=== PATIENT | male | born 1985 | race Caucasian/White ===

== ENCOUNTER 2018-07-07 16:18 | Emergency (ER) | payer SELFPAY ==
[~2018-07-07] VITALS: Ht 172.7 cm; Wt 86.4 kg
[2018-07-07] MEDS: BACITRACIN 0.9 GM PACKET OINTMENT TP ONE (17:37)
[2018-07-07] MEDS: LIDOCAINE/PF 1% 5 ML VIAL INJ ONE (17:37)
[2018-07-07] MEDS: IBUPROFEN 600 MG TABLET PO ONE (17:37)
[2018-07-07] MEDS: PERTUSS(ACELL),DIPH,TET VAC/PF 0.5 ML VIAL IM ONE (17:37)
[2018-07-07] MEDS: POVIDONE-IODINE 10% 15 ML SOLUTION UD TP ONE (17:37)
[2018-07-07 18:24] VITALS: BP 118/73
== END 2018-07-07 18:25 | disposition home or self-care (01) ==
LOC: EMS 16:18
DX: S61.431A Puncture wound without foreign body of right hand, initial encounter (principal); W29.8XXA Contact with other powered hand tools and household machinery, initial encounter; Y93.89 Activity, other specified; Y92.89 Other specified places as the place of occurrence of the external cause; Y99.8 Other external cause status
CPT/HCPCS: 90471; 90715; 99283; J3490

== ENCOUNTER 2018-08-02 19:48 | Emergency (ER) | payer SELFPAY ==
[~2018-08-02] VITALS: Ht 165.1 cm; Wt 100.0 kg
[2018-08-02] MEDS ORDERED: KETOROLAC TROMETHAMINE 60 MG/2 ML VIAL IM ONE (20:45)
[2018-08-02 21:22] VITALS: BP 133/79
== END 2018-08-02 21:24 | disposition home or self-care (01) ==
LOC: EMS 19:50
DX: M70.22 Olecranon bursitis, left elbow (principal); F17.210 Nicotine dependence, cigarettes, uncomplicated; Y93.H3 Activity, building and construction
CPT/HCPCS: 73080; 96372; 99283; 99406; J1885